=== PATIENT | female | born 1990 | race Hispanic/Latino ===

== ENCOUNTER 2018-10-03 05:30 | Day surgery (SDC) | payer MEDICAID ==
[~2018-10-03] VITALS: Ht 121.9 cm; Wt 41.2 kg
[~2018-10-03 05:30] MED LIST: ALBU0.63 IH; ALBU8.5H8 IH; CHOL100040 PO; CITA40TA6 PO; DOCU240C88 PO; FLUT100D3 IH; IBUP-2353 PO; MOME17N NS; TRAZ-187 PO
[2018-10-03 06:01] VITALS: BP 126/89
[2018-10-03] MEDS ORDERED: PROPOFOL 10 MG/ML 20ML VIAL IV ONE ×2 (07:00→07:20)
[2018-10-03] MEDS ORDERED: LIDOCAINE HCL 1% 20 ML VIAL ONE (07:01)
[2018-10-03] MEDS ORDERED: SIMETHICONE 40 MG/0.6 ML ML ONE (07:12)
[2018-10-03 07:26] VITALS: BP 85/48
[2018-10-03 07:30] VITALS: BP 94/47
[2018-10-03 07:35] VITALS: BP 108/71
[2018-10-03 07:41] VITALS: BP 104/68
== END 2018-10-03 08:02 | disposition home or self-care (01) ==
LOC: DAH 05:30
PROVIDERS: ATTEND Internal Medicine Gastroenterology
DX: K63.5 Polyp of colon (principal); K57.30 Diverticulosis of large intestine without perforation or abscess without bleeding; K64.0 First degree hemorrhoids; Z98.0 Intestinal bypass and anastomosis status; F32.9 Major depressive disorder, single episode, unspecified; J45.909 Unspecified asthma, uncomplicated; K21.9 Gastro-esophageal reflux disease without esophagitis; Q93.82 Williams syndrome; Z90.49 Acquired absence of other specified parts of digestive tract; Z79.899 Other long term (current) drug therapy
CPT/HCPCS: 36415; 45385; 84703; 88305; A4606; J2704 ×2; 45380

== ENCOUNTER → 2024-04-26 | Outpatient (CLI) | payer MEDICAID ==
[~2024-04-26] MED LIST changes: +CITA-108 PO; -CITA40TA6 PO; -DOCU240C88 PO; +DOCU240C90 PO; +FLUT100D2 IH; -FLUT100D3 IH; -IBUP-2353 PO; +IBUP-2784 PO; -MOME17N NS; +MOME17SP4 NS
== END | disposition home or self-care (01) ==
LOC: LAB 12:10
PROVIDERS: ATTEND Internal Medicine
DX: E22.1 Hyperprolactinemia (principal)
CPT/HCPCS: 36415; 84146

== ENCOUNTER → 2025-01-29 | Outpatient (CLI) | payer MEDICAID ==
--- NOTE | 2025-01-30 12:12 | HMCIMG ---
Exam Type: ABD COMP DECUB/ERECT VWS Clinical Information: DIARRHEA Comparison: None Findings and impression: Prominent left-sided small bowel loops seen, suggestive of adynamic ileus. There is no dilatation to suggest obstruction at this time and there are no other gross abnormalities.
== END | disposition home or self-care (01) ==
LOC: RAH 16:45
PROVIDERS: ATTEND Internal Medicine Gastroenterology
DX: R19.7 Diarrhea, unspecified (principal)
CPT/HCPCS: 74021

== ENCOUNTER → 2025-01-29 | Emergency (ER) | payer MEDICAID | LOC: EDH 13:02 | DX: R11.10 Vomiting, unspecified (principal); F43.9 Reaction to severe stress, unspecified; Z53.21 Procedure and treatment not carried out due to patient leaving prior to being seen by health care provider ==

== ENCOUNTER → 2025-02-24 | Outpatient (CLI) | payer MEDICAID ==
[~2025-02-24] MED LIST changes: +GADOTERATE MEGLUMINE 10 MMOL/20 ML VIAL IV ONE
--- NOTE | 2025-02-24 21:19 | HMCIMG ---
Exam Type: MR BRAIN WWO CON Clinical Information: E22.1 Hyperprolactinemia Comparison: None Technique: T1 weighed sagittal, T1-weighted axial, T2-weighted axial, diffusion, apparent diffusion, exponential diffusion weighted axial, T2-weighted FLAIR sagittal, coronal and axial images of the brain. Findings: The examination is unremarkable. Sanders-white matter junction is preserved. No intra or extra axial lesions or fluid collections are seen. There are no infarcts. There are no hemorrhages. Signal intensity is normal throughout the periventricular white matter locations. The orbital contents and structures of the posterior fossa are intact. The sella and its contents and the structures of the skull base are intact as well. The pituitary gland is unremarkable in pre and postcontrast. No pituitary adenoma seen. Impression: Normal exam without gadolinium. The pituitary gland is unremarkable in pre and postcontrast. No pituitary adenoma seen.
== END | disposition home or self-care (01) ==
LOC: RAH 14:09
PROVIDERS: ATTEND Internal Medicine
DX: E22.1 Hyperprolactinemia (principal)
CPT/HCPCS: 70553; A9575